=== PATIENT | male | born 1945 | race Caucasian/White ===

== ENCOUNTER → 2020-01-10 | Outpatient (CLI) | payer OTHER ==
[~2020-01-10] VITALS: Ht 177.8 cm; Wt 89.8 kg
[~2020-01-10] MED LIST: CLARITIN10 M3 PO; FIBER500 MG PO; GARLIC1000 MG PO; HYDROCHLOROTHIA25 M2 PO; LODINE400 M1 PO; OXYCODONE HCL10 MG PO; UROCIT-K10 ME1 PO
[2020-01-10 12:57] LABS: HEMATOCRIT 45.1 % (42.0-52.0); HEMOGLOBIN 14.9 gm/dL (14.0-18.0); MCH 30.3 pg (26.0-34.0); RBC 4.9 mil/uL (4.50-6.00); RDW 13.9 % (10.5-14.5); URINE BLOOD NEGATIVE (Negative); URINE CLARITY CLEAR; URINE COLOR YELLOW; URINE GLUCOSE-RANDOM* NEGATIVE (Negative); URINE KETONES NEGATIVE (Negative); URINE LEUKOCYTES-REFLEX NEGATIVE (Negative); URINE NITRITE-REFLEX NEGATIVE (Negative); URINE PROTEIN (DIPSTICK) NEGATIVE (Negative); URINE SPECIFIC GRAVITY 1.025 (1.005-1.035); URINE UROBILINOGEN 0.2 E.U./dl (0.2-1.0); WBC 6.2 thou/uL (4.0-11.0)
[2020-01-10 12:58] LABS: ICTOTEST (BILI CONFIRMATORY) Negative (Negative); URINE BILIRUBIN NEGATIVE (Negative)
[2020-01-10 13:10] LABS: ALBUMIN 3.2 g/dL (3.4-5.0); CALCIUM 9.1 mg/dL (8.5-10.1); CREATININE 0.9 mg/dL (0.7-1.3); INR 1.1; POTASSIUM 4.1 mmol/L (3.5-5.1)
--- NOTE | 2020-02-11 11:27 | EKG ---
[facility] [place] [address] ELECTROCARDIOGRAM REPORT Name: HESHAM GONZALEZ [id number] Admission: 01/10/20 Attend Phys: Gorge Uribe MD Discharge: Date of : 45 Report #: [id number] THIS REPORT FOR: cc: Stevo Shah,Stevo Blakely,Demar Emery MD ~ THIS REPORT FOR: //name// [facility] Test Date: 2020-01-10 Test Time: 12:48:14 Pat Name: HESHAM GONZALEZ Department: Room: Gender: Maternity Floor Supervisor: brian : 1945 Requested By: Gorge Uribe Order Number: [id number] MD: Demar Cartwright Measurements Intervals [place] Rate: 66 P: 52 NM: 159 QRS: -12 QRSD: 95 T: 31 QT: 412 QTc: 432 Interpretive Statements Sinus rhythm Low voltage, extremity leads No previous ECG available for comparison Electronically Signed On 01-10-2020 14:19:00 CDT by Demar Cartwright [email or web address] <ELECTRONICALLY SIGNED> By: Demar Cartwright MD 01/10/20 1419 1248 1248 Demar Cartwright MD /SELIN
== END ==
LOC: PAC 12:04 → PRE 01-25 12:02 → EDSTATUS 01-25 12:48 → OR 01-25 12:49 → EDSTATUS 01-25 13:26 → PRE 01-25 13:53
PROVIDERS: Orthopaedic Surgery
DX: M17.12 Unilateral primary osteoarthritis, left knee (principal)

== ENCOUNTER 2020-03-14 06:08 | Day surgery (SDC) | payer OTHER ==
[~2020-03-14] VITALS: Ht 177.8 cm; Wt 86.2 kg
[~2020-03-14 06:08] MED LIST changes: +ACID CONTROLLER10 MG PO; +LORATIDINE 10 M10 M1 PO
[2020-03-14 07:37] VITALS: BP 129/63
[2020-03-14 11:30] VITALS: BP 116/70
[2020-03-14 12:00] VITALS: BP 122/74
[2020-03-14] MEDS ORDERED: ASPIR 8181 MG PO (14:28)
[2020-03-14] MEDS ORDERED: NEURONTIN 300M300 M2 PO (14:29)
[2020-03-14] MEDS ORDERED: HYDROCODON-ACE1 EAC7 PO (14:29)
[2020-03-14] MEDS ORDERED: MS CONTIN15 MG PO (14:29)
[2020-03-14] MEDS ORDERED: KEFLEX500 M2 PO (14:30)
[2020-03-14 15:45] VITALS: BP 111/62
--- NOTE | 2020-03-16 11:07 | O ---
[place] [address] OPERATIVE REPORT Name: HESHAM GONZALEZ Room #: DEP [facility] M..#: [id number] Admission: 03/14/20 Attend Phys: Gorge Uribe MD Discharge: 03/14/20 Date of : 45 Report #: [id number] THIS REPORT FOR: cc: Stevo Shah,Stevo Valentin,Gorge Becerra MD ~ CC: Stevo Uribe DATE OF SERVICE: 03/14/2020 PREOPERATIVE DIAGNOSIS: Left knee osteoarthritis. POSTOPERATIVE DIAGNOSIS: Left knee osteoarthritis. PROCEDURE: Left total knee arthroplasty using Navio robotic assistance. SURGEON: Gorge Uribe MD. RN RADIOLOGY: Callie Tierney PA-C. INDICATIONS FOR RN RADIOLOGY: Throughout the case, extensive retraction and manipulation of the knee was required. This was afforded to me by my assistant golf course superintendent. ANESTHESIA: LMA with an adductor canal block. IMPLANTS: [employer] size 6 Journey II BCS Oxinium using cobalt chrome femur, a size 6 tibia, size 10 polyethylene and size 35 patella. TOURNIQUET TIME: 61 minutes. ESTIMATED BLOOD LOSS: 25 mL. COMPLICATIONS: None. SPECIMENS: None. CONDITION UPON LEAVING THE OPERATING ROOM: Stable. INDICATIONS FOR PROCEDURE: The patient is a 74-year-old gentleman with severe left knee osteoarthritis. He had failed conservative measures for this and after discussion with him, he elected for left total knee arthroplasty. DESCRIPTION OF PROCEDURE: Risks, benefits, alternatives, complications were discussed in detail with the patient including but not limited to risk of anesthesia, risk of damage to nerves, arteries, blood vessels, risk for [address] [place] [address] OPERATIVE REPORT Name: HESHAM GONZALEZ Room #: DEP [facility] M..#: [id number] Admission: 03/14/20 Attend Phys: Gorge Uribe MD Discharge: 03/14/20 Date of : 45 Report #: [id number] infection, bleeding, risk for continued knee pain and need for reoperation. Informed consent was obtained from the patient. Left knee was appropriately marked in the preoperative holding area. IV Ancef was given for preoperative antibiotics. He was brought to the operating room and placed in supine position on operating room table. LMA anesthesia was induced without complication. Tourniquet was placed on the left thigh. Left lower extremity was prepped and draped in normal sterile fashion. Timeout was performed properly identifying the patient and procedure as well as instrumentation. All in the operating room were in agreement. Left lower extremity was exsanguinated, tourniquet was inflated. Tourniquet time was 61 minutes. Standard midline approach to the knee was made with 10 blade through the skin. Dissection was taken down sharply to the fascia and deep flaps were developed medially and laterally. Fresh 10 blade was used to make a medial parapatellar arthrotomy and the knee was inspected. There was severe tricompartment osteoarthritis. ACL and PCL were removed sharply. Reference pins were placed in the femur and the tibia and the knee was then digitally mapped using the [employer] robotic system. Intraoperative plan was made, we sized the size 6 femur and a size 6 tibia with a size 10 spacer. After acceptance of the intraoperative plan, the distal femoral cut was made with a Navio bur. The distal femoral cutting block was then pinned in place and chamfer cuts were made on the femur. Attention was then turned to the tibia. The remainder of the menisci removed with Bovie cautery. Tibial resection guide was pinned in place and tibial resection was made. After this, flexion and extension gaps were checked and found to have good balance in flexion and extension both medially and laterally. Tibia was sized, found to be a size 6. A size 6 tibial trial was placed, pinned and punched. A size 6 femoral trial was placed and the box cut was made. This was then trialed with a size 10 polyethylene. Knee was taken through range of motion, found to be stable, found to have good balance both digitally as well as manually. A 9 mm was taken off the posterior surface of the patella and a size 35 patellar trial button was placed. Knee was taken through range of motion, found to be stable, found to have good patellar tracking. After this, trial components were removed. Bony ends were thoroughly irrigated with normal saline. A final size 6 tibia, size 6 Journey II BCS cobalt chrome femur and a size 35 patella were cemented in place using standard cementation techniques. While the cement cured, a periarticular injection consisting of morphine, ropivacaine, epinephrine and Toradol was placed around the knee joint capsule. After the cement cured, the tourniquet was deflated. Hemostasis was obtained with Bovie cautery. Final size 10 polyethylene was placed. A gram of vancomycin was placed deep in the joint. Fascia was closed with 0 Vicryl, skin was closed with 2-0 Vicryl, 3-0 Monocryl, Dermabond and a VIRGIL dressing was applied. The patient tolerated this procedure well and went to recovery room under care of anesthesia postoperatively. <ELECTRONICALLY SIGNED> By: Gorge Uribe MD 03/16/20 1107 1139 1209 Gorge Uribe MD /nt
== END 2020-03-14 17:34 | disposition home or self-care (01) ==
LOC: OR 06:08 → TBA 06:11 → OR 10:41 → 4S 10:46 → OR 10:50
DX: M17.12 Unilateral primary osteoarthritis, left knee (principal); M25.562 Pain in left knee; K21.9 Gastro-esophageal reflux disease without esophagitis; Z98.890 Other specified postprocedural states; Z79.899 Other long term (current) drug therapy; Z85.828 Personal history of other malignant neoplasm of skin; Z85.46 Personal history of malignant neoplasm of prostate; Z87.891 Personal history of nicotine dependence; Z96.641 Presence of right artificial hip joint; Z87.442 Personal history of urinary calculi; Z98.41 Cataract extraction status, right eye; Z98.42 Cataract extraction status, left eye
CPT/HCPCS: 50010; 50101; 50415; 50954; 51130; 51225; 51320; 52001; 52282; 53000; 53078; 53367; 54118; 56527; 56528; 57095; 57103; 57110; 57127; 57180; 62110; 62900; 64043; 65060; 70005; J7140

== ENCOUNTER → 2020-04-26 | Outpatient (CLI) | payer OTHER ==
[~2020-04-26] MED LIST changes: +ASPIR 8181 MG PO; +HYDROCODON-ACE1 EAC7 PO; +KEFLEX500 M2 PO; +MS CONTIN15 MG PO; +NEURONTIN 300M300 M2 PO
== END ==
LOC: ULTRA 11:52
PROVIDERS: ATTEND Orthopaedic Surgery
DX: M79.605 Pain in left leg (principal); R22.42 Localized swelling, mass and lump, left lower limb